=== PATIENT | female | born 1985 | race Caucasian/White ===

== ENCOUNTER 2018-02-17 16:36 | Outpatient (CLI) | payer MEDICAID | END 2018-02-17 20:00 | disposition home or self-care (01) | LOC: OBT 16:36 → L-D 16:38 → OBT 20:00 | DX: O40.3XX0 Polyhydramnios, third trimester, not applicable or unspecified (principal); Z3A.36 36 weeks gestation of pregnancy | CPT/HCPCS: 76815; 76816; 76818 ==

== ENCOUNTER 2018-02-21 18:36 | Outpatient (CLI) | payer MEDICAID ==
[2018-02-21 19:55] LABS: ADD MAN DIFF? NO
[2018-02-21 20:03] LABS: BASOPHILS % 0.3 % (0.0-2.0); EOSINOPHILS % 0.4 % (0.0-7.0); HEMATOCRIT 33.3 % (37.0-47.0); HEMOGLOBIN 11.3 g/dl (12.0-16.0); LYMPHOCYTES # 2.2 10^3/ul (0.8-2.9); LYMPHOCYTES % 27.8 % (15.0-51.0); MEAN CORPUSCULAR HEMOGLOBIN 30.8 pg (29.0-33.0); MEAN CORPUSCULAR HGB CONC 33.9 g/dl (32.0-37.0); MEAN CORPUSCULAR VOLUME 90.7 fl (82.0-101.0); MEAN PLATELET VOLUME 12.3 fl (7.4-10.4); MONOCYTE # 0.4 10^3/ul (0.3-0.9); MONOCYTES % 4.7 % (0.0-11.0); NEUTROPHIL # 5.2 10^3/ul (1.6-7.5); NEUTROPHILS % 65.4 % (39.0-77.0); PLATELET COUNT 169 10^3/UL (140-415); RED BLOOD COUNT 3.67 10^6/ul (4.20-5.40); RED CELL DISTRIBUTION WIDTH 14.6 % (11.5-14.5)
[2018-02-21 20:03] LABS: WHITE BLOOD COUNT 7.9 10^3/ul (4.8-10.8)
[2018-02-21 20:21] LABS: ALANINE AMINOTRANSFERASE 19 IU/L (13-69); ALBUMIN 3.2 g/dl (3.3-4.9); ALBUMIN/GLOBULIN RATIO 1.03; ALKALINE PHOSPHATASE 178 IU/L (42-121); ANION GAP 16 (8-16); ASPARTATE AMINO TRANSFERASE 22 IU/L (15-46); BILIRUBIN,INDIRECT 0.4 mg/dl (0-1.1); BILIRUBIN,TOTAL 0.4 mg/dl (0.2-1.3); BLOOD UREA NITROGEN 14 mg/dl (7-20); CALCIUM 8.9 mg/dl (8.4-10.2); CARBON DIOXIDE 16 mmol/L (21-31); CHLORIDE 107 mmol/L (97-110); CREATININE 0.68 mg/dl (0.44-1.00); GLUCOSE 155 mg/dl (70-220); POTASSIUM 3.7 mmol/L (3.5-5.1); SODIUM 135 mmol/L (135-144); TOTAL PROTEIN 6.3 g/dl (6.1-8.1); URIC ACID 6.7 mg/dl (3.1-7.9)
[2018-02-21 20:56] LABS: ADD UMIC YES; UR ASCORBIC ACID 40 mg/dL (NEGATIVE); UR BILIRUBIN (Dip) NEGATIVE (NEGATIVE); UR BLOOD (Dip) NEGATIVE (NEGATIVE); UR CLARITY SLIGHTLY CLOUDY (CLEAR); UR COLOR YELLOW (YELLOW); UR GLUCOSE (Dip) NEGATIVE (NEGATIVE); UR KETONES (Dip) TRACE mg/dL (NEGATIVE); UR LEUKOCYTE ESTERASE (Dip) NEGATIVE Leu/ul (NEGATIVE); UR MUCUS FEW /HPF (NONE SEEN); UR NITRITE (Dip) NEGATIVE (NEGATIVE); UR RBC 1 /HPF (0-5); UR SQUAMOUS EPITHELIAL CELL FEW /HPF (FEW); UR TOTAL PROTEIN (Dip) 2+ mg/dl (NEGATIVE); UR UROBILINOGEN (Dip) NEGATIVE (NEGATIVE); UR WBC 2 /HPF (0-5)
== END 2018-02-21 22:11 | disposition home or self-care (01) ==
LOC: OBT 18:36 → L-D 18:37 → OBT 22:11
DX: O13.3 Gestational [pregnancy-induced] hypertension without significant proteinuria, third trimester (principal); Z3A.36 36 weeks gestation of pregnancy
CPT/HCPCS: 76818; 80053; 81001; 84560; 85025

== ENCOUNTER 2018-02-23 10:52 | Outpatient (CLI) | payer MEDICAID ==
[2018-02-23 11:35] LABS: COLLECTION PERIOD 24 hrs
[2018-02-23 12:40] LABS: COLLECTION PERIOD 24 hrs; SCRET 0.66 mg/dl (0.44-1.00); VOLUME 1500 ml/24hrs; VOLUME 1500 mls
[2018-02-23 12:42] LABS: CREATININE CLEARANCE 100.6 mls/min (84.0-162.0); CREATININE,URINE RANDOM 63.75 mg/dl (20-320)
== END 2018-02-23 13:06 | disposition home or self-care (01) ==
LOC: OBT 10:52 → L-D 10:52 → OBT 13:06
DX: O16.3 Unspecified maternal hypertension, third trimester (principal); Z3A.36 36 weeks gestation of pregnancy
CPT/HCPCS: 82575; 84156

== ENCOUNTER 2018-02-28 19:09 | Inpatient (IN) | payer MEDICAID ==
[2018-02-28 20:54] LABS: ADD MAN DIFF? NO
[2018-02-28 20:55] LABS: BASOPHILS % 0.3 % (0.0-2.0); EOSINOPHILS % 0.4 % (0.0-7.0); HEMATOCRIT 34.7 % (37.0-47.0); HEMOGLOBIN 11.6 g/dl (12.0-16.0); LYMPHOCYTES # 2.4 10^3/ul (0.8-2.9); LYMPHOCYTES % 31.6 % (15.0-51.0); MEAN CORPUSCULAR HEMOGLOBIN 30.8 pg (29.0-33.0); MEAN CORPUSCULAR HGB CONC 33.4 g/dl (32.0-37.0); MEAN PLATELET VOLUME 12.2 fl (7.4-10.4); MONOCYTE # 0.5 10^3/ul (0.3-0.9); MONOCYTES % 6.5 % (0.0-11.0); NEUTROPHIL # 4.6 10^3/ul (1.6-7.5); NEUTROPHILS % 60.5 % (39.0-77.0); PLATELET COUNT 148 10^3/UL (140-415); RED BLOOD COUNT 3.77 10^6/ul (4.20-5.40); RED CELL DISTRIBUTION WIDTH 14.6 % (11.5-14.5)
[2018-02-28 20:55] LABS: WHITE BLOOD COUNT 7.6 10^3/ul (4.8-10.8)
[2018-02-28 21:01] LABS: ADD UMIC YES; UR ASCORBIC ACID NEGATIVE (NEGATIVE); UR BILIRUBIN (Dip) NEGATIVE (NEGATIVE); UR BLOOD (Dip) NEGATIVE (NEGATIVE); UR CLARITY SLIGHTLY CLOUDY (CLEAR); UR COLOR YELLOW (YELLOW); UR GLUCOSE (Dip) NEGATIVE (NEGATIVE); UR KETONES (Dip) NEGATIVE (NEGATIVE); UR LEUKOCYTE ESTERASE (Dip) NEGATIVE Leu/ul (NEGATIVE); UR NITRITE (Dip) NEGATIVE (NEGATIVE); UR RBC 0 /HPF (0-5); UR SPECIFIC GRAVITY (Dip) 1.026 (1.003-1.030); UR SQUAMOUS EPITHELIAL CELL FEW /HPF (FEW); UR TOTAL PROTEIN (Dip) 2+ mg/dl (NEGATIVE); UR UROBILINOGEN (Dip) NEGATIVE (NEGATIVE); UR WBC 1 /HPF (0-5)
[2018-02-28 21:13] LABS: ALANINE AMINOTRANSFERASE 23 IU/L (13-69); ALBUMIN 3.3 g/dl (3.3-4.9); ALBUMIN/GLOBULIN RATIO 1.06; ALKALINE PHOSPHATASE 191 IU/L (42-121); ANION GAP 12 (8-16); ASPARTATE AMINO TRANSFERASE 24 IU/L (15-46); BILIRUBIN,INDIRECT 0.4 mg/dl (0-1.1); BILIRUBIN,TOTAL 0.4 mg/dl (0.2-1.3); BLOOD UREA NITROGEN 15 mg/dl (7-20); CALCIUM 8.9 mg/dl (8.4-10.2); CARBON DIOXIDE 16 mmol/L (21-31); CHLORIDE 113 mmol/L (97-110); GLUCOSE 82 mg/dl (70-220); POTASSIUM 4.2 mmol/L (3.5-5.1); SODIUM 137 mmol/L (135-144); TOTAL PROTEIN 6.4 g/dl (6.1-8.1); URIC ACID 6.4 mg/dl (3.1-7.9)
[2018-02-28] MEDS ORDERED: METHYLERGONOVINE 0.2 MG INJ IM (23:00)
[2018-02-28] MEDS ORDERED: OXYTOCIN 30 UNITS/LR 500 ML IV (23:00)
[2018-02-28] MEDS ORDERED: CARBOPROST 250 MCG INJ IM (23:00)
[2018-02-28] MEDS ORDERED: MISOPROSTOL 200 MCG TAB PR (23:00)
[2018-02-28] MEDS: LACTATED RINGER'S 1,000 ML IV (23:49)
[2018-03-01] MEDS ORDERED: FENTAnyl 50 MCG/ML VIAL (01:01)
[2018-03-01] MEDS ORDERED: morphine SULFATE/PF (10 MG/10 ML) INJ (01:01)
[2018-03-01] MEDS ORDERED: BUPIVACAINE 0.75%/DEXT (SPINAL) 2 ML INJ ×2 (01:01→01:13)
[2018-03-01] MEDS ORDERED: DEXAMETHASONE 4 MG/ML 1 ML INJ (01:27)
[2018-03-01] MEDS ORDERED: ONDANSETRON 4 MG INJ (01:27)
[2018-03-01 01:31] LABS: INR 0.84; PROTIME 11.6 Sec (11.9-14.9); PT RATIO 0.9
[2018-03-01 01:32] LABS: PARTIAL THROMBOPLASTIN TIME 24.8 Sec (25.0-35.0)
[2018-03-01] MEDS ORDERED: MIDAZOLAM 1 MG/ML 2 ML INJ (01:32)
[2018-03-01] MEDS ORDERED: DIPHENHYDRAMINE 50 MG INJ IV (02:30)
[2018-03-01] MEDS ORDERED: ZOLPIDEM 5 MG TAB PO (02:30)
[2018-03-01] MEDS ORDERED: HYDROmorphONE 0.5 MG/0.5 ML SYG IV (02:30)
[2018-03-01] MEDS ORDERED: NALOXONE (0.4 MG/ML) INJ IV (02:30)
[2018-03-01] MEDS ORDERED: ONDANSETRON 4 MG INJ IV (02:30)
[2018-03-01] MEDS: OXYTOCIN 30 UNITS/LR 500 ML IV ×3 (03:46→11:51)
[2018-03-01] MEDS: MEPERIDINE 25 MG INJ IV (04:00)
[2018-03-01] MEDS: CEFAZOLIN 2 GM/50 ML (PMX) 50 ML IV (04:00)
[2018-03-01] MEDS: KETOROLAC 30 MG INJ IV ×3 (06:20→17:42)
[2018-03-01] MEDS: LACTATED RINGER'S 1,000 ML IV (06:56)
[2018-03-01] MEDS ORDERED: OXYTOCIN 30 UNITS/LR 500 ML BAG IV (07:00)
[2018-03-01] MEDS ORDERED: DEXTROSE 5%-LR 1,000 ML IV (09:01)
[2018-03-01] MEDS: HYDROmorphONE 0.5 MG/0.5 ML SYG IV (09:02)
[2018-03-01] MEDS ORDERED: OXYTOCIN 30 UNITS/LR 500 ML IV (09:30)
[2018-03-01] MEDS ORDERED: MISOPROSTOL 200 MCG TAB PR (09:30)
[2018-03-01] MEDS ORDERED: METHYLERGONOVINE 0.2 MG INJ IM (09:30)
[2018-03-01] MEDS ORDERED: METHYLERGONOVINE 0.2 MG TAB PO (09:30)
[2018-03-01] MEDS ORDERED: CARBOPROST 250 MCG INJ IM (09:30)
[2018-03-01 16:21] LABS: RAPID PLASMA REAGIN NONREACTIVE (NR)
[2018-03-01] MEDS: SENNA/DOCUSATE NA (8.6MG/50MG) TAB PO (21:36)
[2018-03-02] MEDS: KETOROLAC 30 MG INJ IV (01:44)
[2018-03-02] MEDS: LANOLIN 7 GM TUBE TOP (01:45)
[2018-03-02] MEDS ORDERED: HYDROCODONE/APAP (5/325) TAB PO (02:29)
[2018-03-02] MEDS ORDERED: IBUPROFEN 800 MG TAB PO (02:29)
[2018-03-02] MEDS: IBUPROFEN 800 MG TAB PO ×3 (05:37→21:24)
[2018-03-02] MEDS: SENNA/DOCUSATE NA (8.6MG/50MG) TAB PO ×2 (09:02→21:24)
[2018-03-02 09:14] LABS: ADD MAN DIFF? NO
[2018-03-02 09:19] LABS: BASOPHILS % 0.2 % (0.0-2.0); EOSINOPHILS % 0.4 % (0.0-7.0); HEMATOCRIT 29.3 % (37.0-47.0); HEMOGLOBIN 9.8 g/dl (12.0-16.0); LYMPHOCYTES # 2.5 10^3/ul (0.8-2.9); LYMPHOCYTES % 27.4 % (15.0-51.0); MEAN CORPUSCULAR HEMOGLOBIN 30.5 pg (29.0-33.0); MEAN CORPUSCULAR HGB CONC 33.4 g/dl (32.0-37.0); MEAN CORPUSCULAR VOLUME 91.3 fl (82.0-101.0); MEAN PLATELET VOLUME 12.5 fl (7.4-10.4); MONOCYTE # 0.5 10^3/ul (0.3-0.9); MONOCYTES % 5.6 % (0.0-11.0); NEUTROPHILS % 65.7 % (39.0-77.0); PLATELET COUNT 127 10^3/UL (140-415); RED BLOOD COUNT 3.21 10^6/ul (4.20-5.40); RED CELL DISTRIBUTION WIDTH 14.9 % (11.5-14.5)
[2018-03-02 09:19] LABS: WHITE BLOOD COUNT 9.1 10^3/ul (4.8-10.8)
[2018-03-02] MEDS: HYDROCODONE/APAP (5/325) TAB PO (11:37)
[2018-03-03] MEDS: HYDROCODONE/APAP (5/325) TAB PO ×2 (03:42→12:41)
[2018-03-03] MEDS: IBUPROFEN 800 MG TAB PO ×3 (05:41→22:09)
[2018-03-03] MEDS: SENNA/DOCUSATE NA (8.6MG/50MG) TAB PO ×2 (08:46→21:15)
[2018-03-04] MEDS: HYDROCODONE/APAP (5/325) TAB PO (03:47)
[2018-03-04] MEDS: IBUPROFEN 800 MG TAB PO ×2 (05:59→14:44)
[2018-03-04] MEDS ORDERED: MEASLES,MUMPS,RUBELLA VACCINE INJ SC* (09:00)
[2018-03-04] MEDS: SENNA/DOCUSATE NA (8.6MG/50MG) TAB PO (09:32)
[2018-03-04] MEDS: DIPHTH/TET/ACEL PERTUSS (ADULT) 0.5 ML VIAL IM* (12:32)
== END 2018-03-04 17:35 | disposition home or self-care (01) | DRG 765 ==
LOC: OBT 19:09 → L-D 03-01 00:51 → PP1 03-01 10:16 → OBT 22:00 → L-D 22:00
PROC: 10D00Z1 Extraction of Products of Conception, Low, Open Approach (ICD-10-PCS; principal; 2018-03-01 01:00)
DX: O13.4 Gestational [pregnancy-induced] hypertension without significant proteinuria, complicating childbirth (principal); D62 Acute posthemorrhagic anemia; O14.94 Unspecified pre-eclampsia, complicating childbirth; O34.219 Maternal care for unspecified type scar from previous cesarean delivery; Z3A.37 37 weeks gestation of pregnancy; Z37.0 Single live birth; Z23 Encounter for immunization
CPT/HCPCS: 76818; 80053; 81001; 84560; 85025; 85610; 85730; 86592; 86850; 86900; 86901; 90715; 99464